=== PATIENT | male | born 1990 | race Caucasian/White ===

== ENCOUNTER 2019-09-18 07:10 | Inpatient (IN) | payer OTHER ==
[2019-09-18] VITALS (16 sets, daily range): BP systolic 107–144; BP diastolic 57–86
[~2019-09-18] VITALS: Ht 182.9 cm; Wt 77.1 kg
[2019-09-18] MEDS ORDERED: HUMALOG100 UNIT/1 SUBQ (07:18)
[2019-09-18 07:51] LABS: BE -27.7 mmol/L (-2 to +3); PCO2 VENOUS 22.4 mmHg (41.0-51.0); PO2 VENOUS 47.7 mmHg (35.0-45.0)
[2019-09-18 07:55] LABS: HEMATOCRIT 52.5 % (42.0-52.0); HEMOGLOBIN 16.6 gm/dL (14.0-18.0); MCH 32.8 pg (26.0-34.0); MCHC 31.5 g/dL (28.0-37.0); MPV 9.6 fl. (7.2-11.1); NUCLEATED RBCS 0 /100WBC; PLATELET COUNT* 387 thou/uL (150-400); RBC 5.05 mil/uL (4.50-6.00); RDW-CV 14.4 % (10.5-14.5); WBC 22.8 thou/uL (4.0-11.0)
[2019-09-18 08:31] LABS: ABSOLUTE EOSINOPHILS 0.2 thou/uL (0.0-0.7); ABSOLUTE LYMPHOCYTES 2.1 thou/uL (0.8-5.3); ABSOLUTE MONOCYTES 0.2 thou/uL (0.0-1.2); ABSOLUTE NEUTROPHILS 20.3 thou/uL (1.6-8.1); ATYPICAL LYMPHS 3 %
[2019-09-18 08:32] LABS: PLATELET ESTIMATE ADEQUATE
[2019-09-18 08:45] LABS: CALCIUM 8.5 mg/dL (8.5-10.1); CREATININE 2.1 mg/dL (0.6-1.3)
[2019-09-18 08:47] LABS: POTASSIUM 6.4 mmol/L (3.5-5.1)
[2019-09-18 08:52] LABS: ALBUMIN 4.6 g/dL (3.4-5.0); TOTAL BILIRUBIN 0.6 mg/dL (<0.1-1.0); TOTAL PROTEIN 8.6 g/dL (6.4-8.2)
[2019-09-18 09:01] LABS: APTT 26.1 Seconds (25.0-31.3); PROTIME 10.1 Seconds (9.20-11.50)
[2019-09-18 09:07] LABS: URINE BLOOD 1+ (Negative); URINE CLARITY CLEAR; URINE COLOR YELLOW; URINE GLUCOSE-RANDOM 2+ (Negative); URINE LEUKOCYTES-REFLEX NEGATIVE (Negative); URINE NITRITE-REFLEX NEGATIVE (Negative); URINE PROTEIN 2+ (Negative); URINE SPECIFIC GRAVITY >= 1.030 (1.005-1.030); URINE UROBILINOGEN 0.2 E.U./dl (0.2-1.0)
[2019-09-18 09:11] LABS: ACETEST (KETONE CONFIRMATORY) Large (Negative); ICTOTEST (BILI CONFIRMATORY) Negative (Negative); URINE BILIRUBIN 1+ (Negative); URINE KETONES 3+ (Negative)
[2019-09-18 09:21] LABS: SQUAMOUS 4-10 Moderate /LPF (0-3)
[2019-09-18 09:22] LABS: COARSE GRANULAR CASTS 0-3 Few /LPF (None Seen); CRYSTALS None Seen /LPF (None Seen); FINE GRANULAR CASTS 0-3 Few /LPF (None Seen); HYALINE CASTS 4-10 Moderate /LPF (None Seen); MUCUS >6 Heavy strn/LPF (None Seen); URINE RBC 3-10 Few /HPF (0-2); URINE WBC-REFLEX 0-5 Rare /HPF (0-5)
[2019-09-18 10:20] LABS: AMP/METHAMP Negative (Negative); BARBITURATES Negative (Negative); BENZODIAZEPINES Negative (Negative); COCAINE POSITIVE (Negative); METHADONE Negative (Negative); OPIATES Negative (Negative); PCP Negative (Negative); THC POSITIVE (Negative)
[2019-09-18 12:13] LABS: CALCIUM 7.4 mg/dL (8.5-10.1); CREATININE 1.7 mg/dL (0.6-1.3)
[2019-09-18 12:15] LABS: POTASSIUM 4.4 mmol/L (3.5-5.1)
[2019-09-18 12:16] LABS: ALBUMIN 3.7 g/dL (3.4-5.0); MAGNESIUM 2.7 mg/dL (1.8-2.4); PHOSPHORUS* 2.2 mg/dL (2.5-4.9)
[2019-09-18 12:24] LABS: BE -17.8 mmol/L (-2 to +3)
[2019-09-18 12:27] LABS: pH 7.225 (7.340-7.450)
[2019-09-18 12:28] LABS: PCO2 17.8 mmHg (35.0-45.0); PO2 140.5 mmHg (75.0-100.0)
[2019-09-18 16:03] LABS: CALCIUM 7.5 mg/dL (8.5-10.1); CREATININE 1.4 mg/dL (0.6-1.3); POTASSIUM 3.9 mmol/L (3.5-5.1)
[2019-09-18 16:06] LABS: ALBUMIN 3.4 g/dL (3.4-5.0); MAGNESIUM 2.3 mg/dL (1.8-2.4); PHOSPHORUS* 1.5 mg/dL (2.5-4.9)
[2019-09-18 19:41] LABS: CREATININE 1.3 mg/dL (0.6-1.3); POTASSIUM 3.4 mmol/L (3.5-5.1)
[2019-09-18 19:44] LABS: ALBUMIN 3.3 g/dL (3.4-5.0); MAGNESIUM 2.3 mg/dL (1.8-2.4); PHOSPHORUS* 1.9 mg/dL (2.5-4.9)
[2019-09-19] VITALS (10 sets, daily range): BP systolic 99–129; BP diastolic 52–89
[2019-09-19 03:52] LABS: ABSOLUTE EOSINOPHILS 0.1 thou/uL (0.0-0.7); ABSOLUTE LYMPHOCYTES 2.2 thou/uL (0.8-5.3); ABSOLUTE MONOCYTES 1.1 thou/uL (0.0-1.2); ABSOLUTE NEUTROPHILS 8.1 thou/uL (1.6-8.1); BASOPHILS 0.3 %; EOSINOPHILS 0.5 %; HEMATOCRIT 39.8 % (42.0-52.0); LYMPHOCYTES 19.5 %; MCH 32.1 pg (26.0-34.0); MCHC 34.1 g/dL (28.0-37.0); MONOCYTES 9.5 %; MPV 8.3 fl. (7.2-11.1); NUCLEATED RBCS 0 /100WBC; POLYS 70.2 %; RBC 4.23 mil/uL (4.50-6.00); WBC 11.5 thou/uL (4.0-11.0)
[2019-09-19 04:03] LABS: ALBUMIN 3.1 g/dL (3.4-5.0); CALCIUM 7.8 mg/dL (8.5-10.1); HEMOGLOBIN 13.6 gm/dL (14.0-18.0); MAGNESIUM 2.3 mg/dL (1.8-2.4); MCV 94.2 fL (80.0-100.0); PLATELET COUNT* 288 thou/uL (150-400); POTASSIUM 3.8 mmol/L (3.5-5.1); TOTAL BILIRUBIN 0.5 mg/dL (<0.1-1.0); TOTAL PROTEIN 6.3 g/dL (6.4-8.2)
[2019-09-19 06:36] LABS: URINE BLOOD NEGATIVE (Negative); URINE CLARITY CLEAR; URINE COLOR YELLOW; URINE GLUCOSE-RANDOM TRACE (Negative); URINE KETONES 1+ (Negative); URINE LEUKOCYTES-REFLEX NEGATIVE (Negative); URINE NITRITE-REFLEX NEGATIVE (Negative); URINE PROTEIN TRACE (Negative); URINE UROBILINOGEN 0.2 E.U./dl (0.2-1.0)
[2019-09-19 06:37] LABS: ICTOTEST (BILI CONFIRMATORY) Negative (Negative); URINE BILIRUBIN 1+ (Negative)
[2019-09-19] MEDS ORDERED: BASAGLAR K100 UNIT/1 SUBQ (07:41)
[2019-09-19] MEDS ORDERED: HUMULIN R100 UNIT/1 SUBQ (07:44)
[2019-09-19] MEDS ORDERED: EASY COMFORT I1 EAC1 SUBQ (07:44)
--- NOTE | 2019-09-19 11:39 | EKG ---
[place] [address] ELECTROCARDIOGRAM REPORT Name: TRAY BARROW Room: [address] ADM IN [facility].#: [id number] Admission: 09/18/19 Attend Phys: Trevor Morgan MD Discharge: Date of : 86 Report #: [id number] THIS REPORT FOR: //name// [facility] ED Test Date: 2019-09-18 Test Time: 07:41:08 Pat Name: TRAY BARORW Department: Room: [facility] Gender: M Musculoskeletal Physiotherapist: : 1990 Requested By: Lincoln Boone Order Number: [id number] MD: Chico Gonzalez Measurements Intervals [place] Rate: 122 P: 0 TX: 139 QRS: -81 QRSD: 100 T: 56 QT: 342 QTc: 488 Interpretive Statements Sinus tachycardia LAD, consider left anterior fascicular block ST elev, probable normal early repol pattern Borderline prolonged QT interval Baseline wander in lead(s) V2,V4 No previous ECG available for comparison Electronically Signed On 09-19-2019 11:39:25 VAN LOADER by Chico Gonzalez [email or web address] <ELECTRONICALLY SIGNED> By: Chico Gonzalez MD, FAC 09/19/19 1139 [id number] [id number] Chico Gonzalez MD, FAC /EPI
== END 2019-09-19 12:10 | disposition home or self-care (01) | DRG 637 ==
LOC: M.ERS 07:10 → M.ICU 09:32 → M.TBA-ER 09:32 → M.ICU 10:44
PROVIDERS: Family Medicine; ADMIT Internal Medicine
PROC: 02HV33Z Insertion of Infusion Device into Superior Vena Cava, Percutaneous Approach (ICD-10-PCS; principal; 2019-09-18)
DX: E10.10 Type 1 diabetes mellitus with ketoacidosis without coma (principal); K85.90 Acute pancreatitis without necrosis or infection, unspecified; R65.11 Systemic inflammatory response syndrome (SIRS) of non-infectious origin with acute organ dysfunction; N17.0 Acute kidney failure with tubular necrosis; E87.5 Hyperkalemia; F17.210 Nicotine dependence, cigarettes, uncomplicated; E86.9 Volume depletion, unspecified; F14.10 Cocaine abuse, uncomplicated; F12.10 Cannabis abuse, uncomplicated; Z79.899 Other long term (current) drug therapy; Z28.21 Immunization not carried out because of patient refusal